=== PATIENT | male | born 1965 | race Two or more races ===

== ENCOUNTER 2017-12-15 13:23 | Emergency (ER) | payer BC ==
[~2017-12-15] VITALS: Ht 182.9 cm; Wt 99.0 kg
[2017-12-15 13:34] VITALS: Ht 182.9 cm; Wt 99.0 kg
[2017-12-15 14:40] LABS: BASOPHIL % 0.4 % (0-2); PLATELET COUNT 220 x10^3mcL (130-400); RED CELL DISTRIBUTION WIDTH 14.4 % (11.5-14.5)
[2017-12-15 14:45] LABS: CALCIUM 8.7 mg/dL (8.5-10.1); CARBON DIOXIDE 27.6 mmol/L (21-32); CHLORIDE SERUM 104 mmol/L (98-107); CREATININE SERUM 1.2 mg/dL (0.7-1.3); GFR1 > 60 mL/min; GLUCOSE SERUM 134 mg/dL (74-106); SODIUM SERUM 140 mmol/L (136-145)
[2017-12-15 14:49] LABS: ALBUMIN 3.8 g/dL (3.4-5.0); ALKALINE PHOSPHATASE 76 U/L (46-116); ALT/SGPT 27 U/L (16-63); AST/SGOT 22 U/L (15-37); BILIRUBIN TOTAL 0.4 mg/dL (0.20-1.00); TOTAL PROTEIN, SERUM 7.2 g/dL (6.4-8.2)
[2017-12-15 15:10] LABS: FREE T4 0.93 ng/dL (0.76-1.46); FREE THYROXINE INDEX 2.7 ug/dL (1.4-4.5); T4(THYROXINE) 8.9 ug/dL (4.7-13.3)
[2017-12-15 15:46] LABS: T3 TOTAL 1.42 ng/mL
[2017-12-15 15:47] VITALS: BP 131/77
== END 2017-12-15 15:48 | disposition left against medical advice (07) ==
LOC: ED 13:23
PROVIDERS: Emergency Medicine
DX: R07.9 Chest pain, unspecified (principal); R03.0 Elevated blood-pressure reading, without diagnosis of hypertension; J44.9 Chronic obstructive pulmonary disease, unspecified
CPT/HCPCS: 83880; 84439; J7030; Q0092

== ENCOUNTER 2017-12-17 11:42 | Emergency (ER) | payer BC ==
[~2017-12-17] VITALS: Ht 182.9 cm; Wt 98.4 kg
[2017-12-17 11:51] VITALS: Ht 182.9 cm; Wt 98.4 kg
[2017-12-17 12:53] LABS: BASOPHIL % 0.4 % (0-2); PLATELET COUNT 236 x10^3mcL (130-400); RED CELL DISTRIBUTION WIDTH 14.1 % (11.5-14.5)
[2017-12-17 13:10] VITALS: BP 114/78
[2017-12-17 13:36] LABS: CALCIUM 9.6 mg/dL (8.5-10.1); CARBON DIOXIDE 26.8 mmol/L (21-32); CHLORIDE SERUM 105 mmol/L (98-107); CREATININE SERUM 1.1 mg/dL (0.7-1.3); GFR1 > 60 mL/min; GLUCOSE SERUM 115 mg/dL (74-106); POTASSIUM SERUM 4.6 mmol/L (3.5-5.1); SODIUM SERUM 141 mmol/L (136-145)
[2017-12-17 13:41] LABS: ALKALINE PHOSPHATASE 76 U/L (46-116); ALT/SGPT 29 U/L (16-63); AST/SGOT 33 U/L (15-37); BILIRUBIN TOTAL 0.32 mg/dL (0.20-1.00); TOTAL PROTEIN, SERUM 7.7 g/dL (6.4-8.2)
== END 2017-12-17 13:11 | disposition short-term general hospital (02) ==
LOC: ED 11:42
PROVIDERS: Emergency Medicine
DX: I21.09 ST elevation (STEMI) myocardial infarction involving other coronary artery of anterior wall (principal)
CPT/HCPCS: J1644; Q0092